=== PATIENT | female | born 1985 | race Caucasian/White ===

== ENCOUNTER 2019-09-24 13:22 | Outpatient (CLI) | payer BC, OTHER ==
--- NOTE | 2019-09-24 14:21 | MRI ---
EXAM: MRI right shoulder PROVIDED CLINICAL HISTORY: Pain COMPARISON: None FINDINGS: Evaluation is limited by patient motion. There is increased signal intensity on fluid sensitive sequences involving the undersurface fibers of the anterior distal supraspinatus tendon near the footplate, suspicious for low-grade partial thickness undersurface tearing. The components of the rotator cuff appear otherwise intact. Intact lo ng head biceps tendon fibers are not identified. Postoperative changes involving the glenoid are demonstrated. There is a small glenohumeral joint eff usion. The glenoid labrum and glenohumeral articular cartilage appear grossly preserved, suboptimally evaluated in the absence of joint distention. Acromioclavicular joint osteoarthrosis is demonstrated without significant mass effect upon the subja cent supraspinatus. No focal concerning regional marrow or muscular signal abnormality is evident. IMPRESSION: 1. Low-grade partial thickness undersurface tearing involving the anterior distal supraspinatus tendo n at the footplate. 2. Intact long head biceps tendon fibers are not identified. 3. Small glenohumeral joint effusion. 4. Acromioclavicular joint osteoarthrosis.
== END 2019-09-24 13:23 | disposition home or self-care (01) ==
LOC: MRI 13:22
PROVIDERS: ATTEND Orthopaedic Surgery
DX: M25.511 Pain in right shoulder (principal); M75.111 Incomplete rotator cuff tear or rupture of right shoulder, not specified as traumatic; M19.011 Primary osteoarthritis, right shoulder; M25.411 Effusion, right shoulder